=== PATIENT | male | born 1960 | race Caucasian/White ===

== ENCOUNTER 2021-12-17 16:23 | Outpatient (REF) | payer BC, SELFPAY ==
--- OUTSIDE RECORDS SUMMARY | 2021-12-17 16:29 | XMS_ITS ---
:1960 Author Care Team Providers Name Role Phone ALEX ERICKSON Primary Care Provider [phone] Allergies Code Code System Name Reaction Severity Status Onset NKDA ? Medications Name Status Start Date Stop Date ? ? aspirin 81 mg chewable tablet Active ? No t available Chew 1 tablet every day by oral route. atorvastatin 40 mg tablet Active ? Not av ailable atorvastatin calcium 40 mg tabs Completed ? 10/10/2018 1 tablet once daily Bactrim DS 800 mg-160 mg tablet Completed 01/16/2016 06/04/2017 1 (one) Tablet: bid - twice daily Fish Oil Completed ? 05/27/2018 once daily gabapentin 300 mg caps Completed ? 8 Jardiance 10 mg tablet Active ? Not avail able lisinop/hctz tab 10-12.5 Completed ? 018 lisinop/hctz tab 20-12.5 Completed ? 019 lisinopril 10 mg tablet Completed 06/04/2017 07/08/20 17 1 (one) Tablet Tablet: qd - daily lisinopril 20 Active ? Not available mg-hydrochlorothiazide 12.5 mg tablet metformin 1,000 mg tablet Active ? Not av ailable metformin 500 mg tablet Completed ? 10/10/20 18 TAKE 1 (ONE) TABLET BY MOUTH TWICE DAILY metformin hcl 500 mg tabs Completed ? 2017 1 tablet twice daily metoprolol succinate ER 50 mg Active ? No t available tablet,extended release 24 hr metoprolol succinate er 50 mg Completed ? tb24 nystatin 100,000 unit/gram topical powder Completed ? 02/08/2019 APPLY TO THE AFFECTED AREA(S) BY TOPICAL ROUTE 2 TIMES PER DAY apply to soles of both feet and between toes nystop 625221 unit/gm powd Completed ? 05/27 triamcinolone acetonide 0.1 % Completed ? crea triamcinolone acetonide 0.1 % topical cream Completed ? 02/08/2019 APPLY A THIN LAYER TO THE AFFECTED AREA(S) BY TOPICAL ROUTE 2 T IMES PER DAY apply to top of both feet and lower legs. Notes: 02/08/2019 patient only ta kes Metformin once daily as it causes diarrhea Problems Name Status Onset Date Source ? Tinea Pedis Active 05/27/2018 ? Type 2 Diabetes Mellitus without Active ? History Complication Hyperlipidemia Active ? History Obesity Active ? History Nicotine Dependence Active ? History Cyst of Eyelid Active ? History Hypertensive Disorder Active ? History Epidermoid Cyst of Skin Active ? History Idiopathic Osteoarthritis Active ? Histor y Low Back Pain Active ? History Hyperglycemia Unknown ? History Adult Health Examination Active ? History Screening for Cardiovascular System Unknown ? History Disease Procedure by Method Unknown ? History Procedures Date Name Performed by ? 06/02/2019 Ldct for Lung Ca Screen Information not available Notes: Patient declines testing 11/01/2008 Colonoscopy Information not avai lable Notes: benign polypectomy Results Lab Results Date Name Specimen Result Interpretation Description Value Range Status Address ? 10/16/2019 HbA1C BLD High Ha1C 8.0 % 4.0-6.0 % Final [facility] ([facility] a1[facility]), Blood (Inte rnal): [address] 05/28/2019 HbA1C BLD High Ha1C 11.1 4.0-6.0 % [facility] [place] [facility] ([facility] % [facility] a[facility]), Blood (Inte rnal): [address] 02/03/2019 Lipid Panel, S - Chol 139 50-200 Final [place] [facility] Serum mg/dL mg/dL Hospital L ab (Internal) : [address] ? ? S High Trig 203 10-150 Final [facility] [facility] try mg/dL mg/dL Hospital L ab (Internal) : [address] ? ? S - Hdl 41 40-60 Final [place] [facility] try mg/dL mg/dL Hospital L ab (Internal) : [address] ? ? S - Ldl 57 0-130 Final [place] [facility] try mg/dL mg/dL Hospital L ab (Internal) : [address] 02/03/2019 HbA1C BLD High Ha1C 9.4 % 4.0-6.0 % Final [place] [facility] ([facility] a1[facility]), Blood (Inte rnal): [address] 02/03/2019 Microalbumin, UR High Malb 17.0 5.0-16.7 Haritha l [facility] Urine mg/L mg/L Hospital L ab (Internal) : [address] t ? ? UR - U-crea 66 30-125 Final [facility] ntry , Spot mg/dL mg/dL Hospital L ab (Internal) : [address] ? ? UR - Microa 25.7 0.0-30.0 Final [facility] lb/crea ug/mg ug/mg [facility] [address] [facility] 02/03/2019 PSA, Serum or S - PSA 1.1 0.0-4.0 Final [facility] Plasma Scrn NG/mL NG/mL Hospital L ab (Internal) : [address] 10/04/2018 HbA1C BLD High Ha1C 8.7 % 4.0-6.0 % Final [facility] (Hemoglobin Hospi [facility] a1C), Blood (Inte rnal): [address] 01/28/2018 Venipuncture BLD ? Venpn* ? ? Final [facility] Hospital L ab (Internal) : [address] 01/28/2018 Microalbumin, UR High Malb 29.6 5.0-16.7 Haritha l [facility] Urine mg/L mg/L Hospital L ab (Internal) : [address] ? ? UR High U-crea 228 30-125 Final [facility] ntry , Spot mg/dL mg/dL Hospital L ab (Internal) : [address] ? ? UR ? Microa 13.0 0.0-30.0 Final [facility] lb/crea ug/mg ug/mg Hospital Lab Ratio (Internal) : [address] 01/28/2018 HbA1C BLD High Ha1C 6.8 % 4.0-6.0 % Final [facility] (Hemoglobin [facility]pi [facility] a1C), Blood (Inte rnal): [address] 01/28/2018 Lipid Panel, S ? Chol 124 50-200 Final [facility] Serum mg/dL mg/dL Hospital L ab (Internal) : [address] t ? ? S High Trig 182 10-150 [facility] mg/dL mg/dL Hospital L [facility] (Internal) : [address] t ? ? S ? Hdl 42 40-60 Final [facility] mg/dL mg/dL Hospital L ab (Internal) : [address] t ? ? S ? Ldl 46 0-130 Final [facility] mg/dL mg/dL Hospital L ab (Internal) : [address] t 01/28/2018 CMP, Serum or S High g/r 149 74-106 Final [facility] Plasma mg/dL mg/dL Hospital L ab (Internal) : [address] t ? ? S ? Bun 20 9-20 Final [facility] mg/dL mg/dL Hospital L ab (Internal) : [address] t ? ? S ? Crea 0.80 0.66-1.25 Final [facility] mg/dL mg/dL Hospital L ab (Internal) : [address] t ? ? S ? Ca 9.2 8.4-10.2 [facility] mg/dL mg/dL Hospital L ab (Internal) : [address] t ? ? S ? Na 139 137-145 Final [facility] mmol/ mmol/L Hospital L ab L (Internal) : [address] t ? ? S ? K 3.9 3.5-5.1 Final [facility] mmol/ mmol/L Hospital L ab L (Internal) : [address] t ? ? S ? Cl 101 98-107 Final [facility] mmol/ mmol/L Hospital L ab L (Internal) : [address] t ? ? S ? Tco2 27.0 22.0-30.0 Final [facility] mmol/ mmol/L Hospital L ab L (Internal) : [address] t ? ? S ? Tp 7.2 6.3-8.2 Final [facility] g/dL g/dL Hospital L ab (Internal) : [address] t ? ? S ? Alb 4.2 3.5-5.0 Final [facility] g/dL g/dL Hospital L ab (Internal) : [address] ? ? S ? Tbil 0.6 0.2-1.3 Final [facility] ntry mg/dL mg/dL Hospital L ab (Internal) : [address] ? ? S ? Alp 79 50-136 Final [place] [facility] try U/L U/L Hospital L ab (Internal) : [address] ? ? S ? Alt 34 21-72 U/L Final [facility] (Sgpt) U/L Hospital L ab (Internal) : [address] ? ? S ? Ast 23 17-59 U/L Final [place] [facility] (Sgot) U/L Hospital L ab (Internal) : [address] 07/02/2017 Venipuncture BLD ? Venpn* ? ? Final [facility] Hospital L ab (Internal) : [address] 07/02/2017 HbA1C BLD High Ha1C 7.4 % 4.0-6.0 % Final [facility] (Hemoglobin [facility]pi [facility] a1C), Blood (Inte rnal): [address] 06/06/2017 Venipuncture BLD ? Venpn* ? ? Final [facility] Hospital L ab (Internal) : [address] 06/06/2017 Lipid Panel, S ? Chol 193 50-200 Final [facility] Serum mg/dL mg/dL Hospital L ab (Internal) : [address] ? ? S High Trig 151 10-150 Final [facility] try mg/dL mg/dL Hospital L ab (Internal) : [address] ? ? S ? Hdl 43 40-60 Final [facility] try mg/dL mg/dL Hospital L ab (Internal) : [address] ? ? S ? Ldl 120 0-130 Final [facility] try mg/dL mg/dL Hospital L ab (Internal) : [address] 06/06/2017 BMP, Serum or S High g/r 156 74-106 Final [facility] Plasma mg/dL mg/dL Hospital L ab (Internal) : [address] ? ? S ? Bun 15 9-20 Final [facility] mg/dL mg/dL Hospital L ab (Internal) : [address] t ? ? S ? Crea 0.90 0.66-1.25 Final [place] [facility] [place] mg/dL mg/dL Hospital L ab (Internal) : [address] t ? ? S ? Ca 8.7 8.4-10.2 Final [place] [facility] mg/dL mg/dL Hospital L ab (Internal) : [address] t ? ? S ? Na 139 137-145 Final [facility] mmol/ mmol/L Hospital L ab L (Internal) : [address] t ? ? S ? K 3.9 3.5-5.1 Final [place] [facility] mmol/ mmol/L Hospital L ab L (Internal) : [address] t ? ? S ? Cl 104 98-107 Final [facility] mmol/ mmol/L Hospital L ab L (Internal) : [address] ? ? S ? Tco2 28.0 22.0-30.0 Final [place] [facility] mmol/ mmol/L Hospital L ab L (Internal) : [address] t Past Encounters None recorded. Social History Tobacco Smoking Status Current Every Day Smoker Notes: 1 ppd, started at 20 years old Vaccine List Vaccine Type Tdap 03/06/2015?0.5 mL Plan of Care Reminders Provider Appointments None ? ? recorded. Lab None ? ? recorded. Referral None ? ? recorded. Procedures None ? ? recorded. Surgeries None ? ? recorded. Imaging None ? ? recorded. Vitals 10/20/2019 03:00PM CPE 40 Height Weight BMI Blood Pressure 175.26 cm 100.43 kg 32.7 kg/m2 130/80 mm[Hg] 06/02/2019 04:20PM Follow Up 20 Height Weight BMI Blood Pressure 193.04 cm 102.65 kg 27.5 kg/m2 142/82 mm[Hg] 02/08/2019 08:40AM Follow Up 20 Height Weight BMI Blood Pressure 193.04 cm 102.87 kg 27.6 kg/m2 150/94 mm[Hg] 10/10/2018 09:00AM CPE 40 Height Weight BMI Blood Pressure 193.04 cm 100.79 kg 27 kg/m2 154/92 mm[Hg] 05/27/2018 03:00PM Follow Up 20 Height Weight BMI Blood Pressure 193.04 cm 102.65 kg 27.5 kg/m2 116/80 mm[Hg] 05/03/2018 05:00PM Acute 20 Height Weight BMI Blood Pressure 193.04 cm 100.47 kg 27 kg/m2 182/110 mm[Hg] 02/04/2018 Weight Blood Pressure 98.2 kg 142/90 mm[Hg] 10/01/2017 Weight Blood Pressure 97.61 kg 150/68 mm[Hg] 07/02/2017 Weight Blood Pressure 95.48 kg 158/102 mm[Hg] 06/04/2017 Weight Blood Pressure 94.17 kg 170/110 mm[Hg] 01/16/2016 Height Weight 175.9 cm 103.69 kg 01/06/2016 Height Weight Blood Pressure 175.9 cm 103.69 kg 150/96 mm[Hg] 03/06/2015 Weight Blood Pressure 104.96 kg 142/80 mm[Hg]
[2021-12-17 19:57] LABS: Microalb ug/mg Crea 7.8 ug/mg Cr
== END 2021-12-17 16:24 | disposition home or self-care (01) ==
LOC: NCHCN 16:23
PROVIDERS: Visit Provider Physician Assistant
DX: E11.9 Type 2 diabetes mellitus without complications (principal)
CPT/HCPCS: 82043; 82570

== ENCOUNTER 2022-06-24 16:30 | Outpatient (REF) | payer BC, SELFPAY ==
[2022-06-24 22:08] LABS: HCT 46.1 % (40.0-50.0); MCHC 34.7 % (32.0-36.0); MCV 92 fL (80-95); MPV 12.4 fL (8.0-11.0); Platelet Count 233 10^3/uL (130-400); RDW 12.9 % (11.8-14.1); RDW-SD 43.9 fL; WBC 10.11 10^3/uL (4.4-10.8)
[2022-06-24 22:33] LABS: ALT 25 U/L (16-63); AST 16 U/L (15-37); Albumin 3.7 g/dL (3.4-5.0); Alkaline Phosphatase 92 U/L (46-116); Anion Gap 11.1 mmol/L (3-11); BUN 17 mg/dL (7-18); Bilirubin, Total 0.7 mg/dL (0.2-1.0); CO2 26.9 mmol/L (21.0-32.0); CREATININE 1.1 mg/dL (0.70-1.30); Calcium 8.9 mg/dL (8.5-10.1); Chloride 101 mmol/L (98-107); Glucose 251 mg/dL (74-106); Potassium 3.3 mmol/L (3.5-5.1); Sodium 139 mmol/L (136-145); Total Protein 7.1 g/dL (6.4-8.2)
== END 2022-06-24 16:31 | disposition home or self-care (01) ==
LOC: NCHCN 16:30
PROVIDERS: Visit Provider Physician Assistant
DX: R19.7 Diarrhea, unspecified (principal)
CPT/HCPCS: 80053; 85027

== ENCOUNTER 2023-03-22 13:50 | Outpatient (REF) | payer BC, SELFPAY ==
[2023-03-22 17:37] LABS: ALT 29 U/L (16-63); AST 17 U/L (15-37); Albumin 4.1 g/dL (3.4-5.0); Alkaline Phosphatase 127 U/L (46-116); Anion Gap 12.8 mmol/L (3-11); BUN 23 mg/dL (7-18); CO2 25.2 mmol/L (21.0-32.0); CREATININE 0.8 mg/dL (0.70-1.30); Calculated LDL 67 mg/dL (<100); Chloride 99 mmol/L (98-107); Cholesterol 129 mg/dL (<200); Estimated GFR 100.06 (mL/min/1.73m2); Glucose 127 mg/dL (74-106); HDL Cholesterol 42 mg/dL (40-60); Potassium 4.3 mmol/L (3.5-5.1); Sodium 137 mmol/L (136-145); Total Protein 7.8 g/dL (6.4-8.2); Triglyceride 104 mg/dL (<150)
[2023-03-22 17:54] LABS: Microalb ug/mg Crea 90.9 ug/mg Cr
[2023-03-23 11:45] LABS: Hemoglobin A1C 8.8 % (<5.7)
== END 2023-03-22 13:51 | disposition home or self-care (01) ==
LOC: NCHCN 13:50
PROVIDERS: Visit Provider Physician Assistant
DX: E11.9 Type 2 diabetes mellitus without complications (principal); I10 Essential (primary) hypertension; E78.5 Hyperlipidemia, unspecified
CPT/HCPCS: 80053; 80061; 82043; 82570; 83036

== ENCOUNTER 2024-10-12 09:19 | Outpatient (REF) | payer OTHER, SELFPAY ==
--- OUTSIDE RECORDS SUMMARY | 2024-10-12 09:25 | XMS_ITS | Continuity of Care Document ---
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 Name Role Phone Klever Montez Primary Care Physician Encounter [facility] Date(s): 10/06/22 - 10/06/[address] [address] Discharge Disposition: Home or Self Care Attending Physician: Klever Montez Admitting Physician: Klever Montez Referring Physician: Klever Montez Allergies, Adverse Reactions, Alerts No Known Medication Allergies Immunizations Given and Recorded Vaccine Date Status Refusal Reason tetanus/diphth/pertuss (Tdap) adult/adol 03/06/15 Recorded Social History Social History Type Response Sex Male Patient Care team information Personnel Name: Klever Montez Address: Address: [address] [place], [place] [address]
--- OUTSIDE RECORDS SUMMARY | 2024-10-12 09:25 | XMS_ITS | Continuity of Care Document ---
Author Organization [facility] Address [address] [place] [address] Care Team Providers Care Correctional Guard Name Role Phone Klever Bernard Primary Care Physician Encounter [facility] Date(s): 05/30/24 - 05/30/[address] [address] Discharge Disposition: Home or Self Care Attending Physician: Klever Bernard Admitting Physician: Klever Bernard Referring Physician: Klever Bernard Allergies, Adverse Reactions, Alerts No Known Medication Allergies Immunizations Given and Recorded Vaccine Date Status Refusal Reason tetanus/diphth/pertuss (Tdap) adult/adol 03/06/15 Recorded Results Laboratory List Name Date Automated Diff 05/30/24 CBC w/ Diff 05/30/24 Comprehensive Metabolic Panel 05/30/24 Hemoglobin A1c 05/30/24 Lipid Panel 05/30/24 Microalbumin/Creatinine Ratio Urine 05/30 Most recent to oldest [Reference Range]: 1 WBC [5.0-10.0 x10^3/mcL] 8.7 x10^3/mcL (05/30/24 7:11 AM) RBC [4.6-6.0 x10^6/mcL] 4.9 x10^6/mcL (05/30/24 7:11 AM) Neutro Auto [40.0-75.0 %] 58.6 % (05/30/24 7:11 AM) Lymph Auto [20.0-50.0 %] 28.2 % (05/30/24 7:11 AM) [place] Auto [2.0-15.0 %] 7.2 % (05/30/24 7:11 AM) Basophil Auto [0.0-1.0 %] 1.0 % (05/30/24 7:11 AM) BUN [7-18 mg/dL] 16 mg/dL (05/30/24 7:11 AM) Cholesterol Total [50-200 mg/dL] 118 mg/ dL (05/30/24 7:11 AM) LDL [0-130 mg/dL] 56 mg/dL (05/30/24 7:11 AM) Glucose Level [74-106 mg/dL] 176 mg/dL *HI* (05/30/24 7:11 AM) Potassium Level [3.5-5.1 mmol/L] 4.0 mmo l/L (05/30/24 7:11 AM) MCV [80.0-96.0 fL] 95.1 fL (05/30/24 7:11 AM) HDL [40-60 mg/dL] 44 mg/dL (05/30/24 7:11 AM) AST [15-37 unit/L] 12 unit/L *LOW* (05/30/24 7: AM) ALT [16-63 unit/L] 24 unit/L (05/30/24 7:11 AM) MCHC [31.0-35.0 g/dL] 34.1 g/dL (05/30/24 7:11 AM) Sodium Level [136-145 mmol/L] 135 mmol/L *LOW* (05/30/24 7:11 AM) Hct [41.0-51.0 %] 46.4 % (05/30/24 7:11 AM) Triglycerides [0-150 mg/dL] 88 mg/dL (05/30/24 7:11 AM) Calcium Level [8.5-10.1 mg/dL] 8.6 mg/dL (05/30/24 7:11 AM) Albumin Level [3.4-5.0 g/dL] 3.6 g/dL (05/30/24 7:11 AM) Protein Total [6.4-8.2 g/dL] 7.4 g/dL (05/30/24 7:11 AM) MCH [26.0-32.0 pg] 32.4 pg *HI* (05/30/24 7:11 AM) Neutro Absolute 5.1 x10^3/mcL *NA* (05/30/24 7:11 AM) Bilirubin Total [0.2-1.0 mg/dL] 0.5 mg/d L (05/30/24 7:11 AM) Hgb [14.0-18.0 g/dL] 15.8 g/dL (05/30/24 7:11 AM) Alk Phos [46-146 unit/L] 108 unit/L (05/30/24 7:11 AM) Platelets [130-450 x10^3/mcL] 205 x10^3/ mcL (05/30/24 7:11 AM) CO2 [21-32 mmol/L] 27 mmol/L (05/30/24 7:11 AM) eGFR Non-AA [>=60] 91 (05/30/24 7:11 AM) eGFR AA [>=60] 91 (05/30/24 7:11 AM) U Creatinine 48 mg/dL *NA* (05/30/24 7:11 AM) Hemoglobin A1c [4.0-5.6 %] 7.9 % 1 *HI* (05/30/24 7:11 AM) Chloride Level [98-107 mmol/L] 101 mmol/ L (05/30/24 7:11 AM) RDW-CV [11.5-14.5 %] 13.3 % (05/30/24 7:11 AM) U Microalb/Creat [0.0-30.0 mcg/mg] 54.6 mcg/mg *HI* (05/30/24 7:11 AM) U Microalb [0.0-20.0] 26.2 *HI* (05/30/24 7:11 AM) Imm Gran Auto [0.0-0.9 %] 0.9 % (05/30/24 7:11 AM) Creatinine Level [0.70-1.30 mg/dL] 0.94 mg/dL (05/30/24 7:11 AM) Eos, Auto [1.0-6.0 %] 4.1 % (05/30/24 7:11 AM) 1Interpretive Data: New test method effective 11-30-23. Establishment of new HA1c baseline is recommended. The following A1c interpretive data reflect the 2017 [place] [employer] (ADA) guidelinesand will be reported with each A1c result: Normal: <5.7% Prediabetes: 5.7 - 6.4% Diagnostic for diabetes (if confirmed): ???6.5% Social History Social History Type Response Sex Male Patient Care team information Care Team Personnel Name: [facility], Klever [place] Position: No Access Member Role: Primary Care Physician Address: Address: [address] Care Team Related Persons Name: SUSAN REYES
[2024-10-12 14:58] LABS: Hemoglobin A1C 8.1 % (<5.7)
[2024-10-12 15:20] LABS: ALT 30 U/L (16-63); AST 18 U/L (15-37); Albumin 4.1 g/dL (3.4-5.0); Alkaline Phosphatase 111 U/L (46-116); Anion Gap 12.3 mmol/L (3-11); BUN 21 mg/dL (7-18); Bilirubin, Total 0.87 mg/dL (0.2-1.0); CO2 22.7 mmol/L (21.0-32.0); Calcium 9.2 mg/dL (8.5-10.1); Calculated LDL 87 mg/dL (<100); Chloride 107 mmol/L (98-107); Cholesterol 163 mg/dL (<200); Estimated GFR 84.05 (mL/min/1.73m2); Glucose 147 mg/dL (74-106); HDL Cholesterol 52 mg/dL (40-60); Potassium 4.7 mmol/L (3.5-5.1); Sodium 142 mmol/L (136-145); Total Protein 7.7 g/dL (6.4-8.2); Triglyceride 123 mg/dL (<150)
== END 2024-10-12 09:20 | disposition home or self-care (01) ==
LOC: NCHCN 09:19
PROVIDERS: Visit Provider Physician Assistant
DX: E11.9 Type 2 diabetes mellitus without complications (principal)
CPT/HCPCS: 80053; 80061; 82043; 82570; 83036

== ENCOUNTER 2025-10-19 12:52 | Outpatient (REF) | payer OTHER, SELFPAY ==
[2025-10-19 15:57] LABS: HCT 50.7 % (40.0-50.0); HGB 17.0 g/dL (13.5-17.5); MCH 32.2 pg (27.0-33.0); MCHC 33.5 % (32.0-36.0); MCV 96 fL (80-95); MPV 11.6 fL (8.0-11.0); Platelet Count 214 10^3/uL (130-400); RBC 5.28 10^6/uL (4.36-5.78); RDW 13.5 % (11.8-14.1); RDW-SD 47.8 fL; WBC 9.48 10^3/uL (4.4-10.8)
[2025-10-19 16:35] LABS: ALT 30 U/L (10-49); AST 23 U/L (<34); Albumin 4.7 g/dL (3.2-5.0); Alkaline Phosphatase 103 U/L (46-116); Anion Gap 9.4 mmol/L (3-11); BUN 20 mg/dL (9-23); Bilirubin, Total 1.1 mg/dL (0.2-1.2); CO2 25.6 mmol/L (20.0-31.0); Calcium 9.2 mg/dL (8.3-10.6); Chloride 105 mmol/L (98-107); Cholesterol 139 mg/dL (<200); Glucose 128 mg/dL (74-106); HDL Cholesterol 48 mg/dL (>or=40); Potassium 4.6 mmol/L (3.5-5.1); Sodium 140 mmol/L (136-145); Total Protein 7.6 g/dL (5.7-8.2)
[2025-10-19 16:48] LABS: Hemoglobin A1C 7.5 % (<5.7)
[2025-10-19 17:17] LABS: Microalb ug/mg Crea 58.1 ug/mg Cr
[2025-10-19 22:08] LABS: PSA, Screening 1.1 ng/mL (<=4.5)
== END 2025-10-19 12:53 | disposition home or self-care (01) ==
LOC: NCHCN 12:52
PROVIDERS: Visit Provider Physician Assistant
DX: I10 Essential (primary) hypertension (principal); E78.5 Hyperlipidemia, unspecified; F17.200 Nicotine dependence, unspecified, uncomplicated; Z12.5 Encounter for screening for malignant neoplasm of prostate; E11.9 Type 2 diabetes mellitus without complications
CPT/HCPCS: 80053; 80061; 84153; 85027; 82043; 82570; 83036